=== PATIENT | female | born 1955 | race Caucasian/White ===

== ENCOUNTER → 2017-03-27 | Outpatient (REF) | payer OTHER ==
[2017-03-27 20:24] LABS: ALBUMIN/GLOBULIN RATIO 1.43 (1.00-1.93); ALKALINE PHOSPHATASE 75 U/L (45-117); ALT/SGPT 16 U/L (12-78); ANION GAP 7 MEQ/L (8-16); AST/SGOT 11 U/L (7-37); BILIRUBIN,TOTAL 0.5 MG/DL (0.2-1.0); BLOOD UREA NITROGEN 16 MG/DL (7-18); CARBON DIOXIDE LEVEL 30 MEQ/L (21-32); CHLORIDE LEVEL 108 MEQ/L (98-107); CHOLESTEROL LEVEL 240 MG/DL (<200); CREATININE FOR GFR 0.57 MG/DL (0.55-1.02); GLOMERULAR FILTRATION RATE > 60.0 (>45); GLUCOSE, FASTING 83 MG/DL (80-110); POTASSIUM SERUM 3.9 MEQ/L (3.5-5.1); SODIUM LEVEL 145 MEQ/L (136-145); TOTAL PROTEIN 6.8 GM/DL (6.4-8.2); TRIGLYCERIDES LEVEL 79 MG/DL (<150)
== END ==
LOC: M SFHCCAPE 07:03
PROVIDERS: ATTEND Physician Assistant
DX: E55.9 Vitamin D deficiency, unspecified (principal); Z13.220 Encounter for screening for lipoid disorders; Z13.1 Encounter for screening for diabetes mellitus

== ENCOUNTER → 2019-04-27 | Outpatient (CLI) | payer OTHER ==
[2019-04-27 08:58] LABS: HEMATOCRIT 39.3 % (36.0-47.0); HEMOGLOBIN 12.6 g/dl (12.0-15.5); MEAN CORPUSCULAR HEMOGLOBIN 28.9 pg (27.0-33.0); MEAN CORPUSCULAR HGB CONC 32.1 g/dl (32.0-36.5); MEAN CORPUSCULAR VOLUME 90.1 fl (80.0-96.0); PLATELET COUNT, AUTOMATED 247 10^3/uL (150-450); RED BLOOD COUNT 4.36 10^6/uL (4.00-5.40); WHITE BLOOD COUNT 4.2 10^3/uL (4.0-10.0)
[2019-04-27 09:16] LABS: ERYTHROCYTE SEDIMENTATION RATE 4 mm/hr (0-30)
[2019-04-27 09:25] LABS: ALBUMIN 3.7 GM/DL (3.2-5.2); ALT/SGPT 17 U/L (12-78); BILIRUBIN,TOTAL 0.4 MG/DL (0.2-1.0); BLOOD UREA NITROGEN 19 MG/DL (7-18); CARBON DIOXIDE LEVEL 28 MEQ/L (21-32); CHLORIDE LEVEL 109 MEQ/L (98-107); CREATININE FOR GFR 0.66 MG/DL (0.55-1.30); GLOMERULAR FILTRATION RATE > 60.0 (>45); GLUCOSE, FASTING 88 MG/DL (70-100); POTASSIUM SERUM 3.8 MEQ/L (3.5-5.1); SODIUM LEVEL 144 MEQ/L (136-145); TOTAL PROTEIN 6.4 GM/DL (6.4-8.2)
--- NOTE | 2019-04-27 12:41 | REP ---
Clinical: Osteoarthritis . Comparison: 07/15/2008 . Technique: PA and lateral. Findings: The mediastinum and cardiac silhouette are normal. The lung diaz are clear and without acute consolidation, effusion, or pneumothorax. The skeletal structures are intact and normal. Impression: 1. No acute cardiopulmonary process. Electronically Signed by Nilton Silver MD 04/27/2019 08:47 A
--- NOTE | 2019-04-28 07:01 | ECGEPIP ---
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
== END ==
LOC: M LAB 08:09
PROVIDERS: ATTEND Orthopaedic Surgery
DX: Z01.810 Encounter for preprocedural cardiovascular examination (principal)

== ENCOUNTER → 2019-05-07 | Outpatient (REF) | payer OTHER ==
[~2019-05-07] MED LIST: ADV100INH INH; MOME50SP; PROV108A INH; VITA400T15 PO
[2019-05-07 19:18] LABS: INR 0.93; PROTHROMBIN TIME 12.2 SECONDS (11.8-14.0)
== END ==
LOC: M LABDRWCV 16:16
PROVIDERS: ATTEND Orthopaedic Surgery
DX: Z01.812 Encounter for preprocedural laboratory examination (principal); M17.12 Unilateral primary osteoarthritis, left knee; J45.909 Unspecified asthma, uncomplicated

== ENCOUNTER → 2019-05-13 | Outpatient (CLI) | payer OTHER ==
[~2019-05-13] MED LIST changes: +OXYC1TAB23 PO; +XARE10TA PO
== END ==
LOC: M PT 09:33
PROVIDERS: ATTEND Orthopaedic Surgery
DX: Z01.818 Encounter for other preprocedural examination (principal)

== ENCOUNTER 2019-05-15 10:49 | Inpatient (IN) | payer OTHER ==
--- NOTE | 2019-05-05 16:24 | HPE ---
DATE OF SCHEDULED ADMISSION: 05/15/2018 ATTENDING PHYSICIAN: Dr. Sharyn Bautista CHIEF COMPLAINT: Left knee pain and stiffness. This is a pleasant 63-year-old female patient with progressively worsening left knee pain and stiffness. She has failed to improve with conservative management, including injections in her knees, rest, activity modifications, and nonsteroidal anti-inflammatory drugs (NSAIDs). She has pain with weightbearing activities, walking, climbing stairs, kneeling. It affects her activities of daily living. She has elected for surgery for her continued symptoms. She has consented for a left total knee arthroplasty by Dr. Sharyn Bautista. X-rays of her left knee notable for bone on bone compartment and advanced tricompartmental degenerative changes of her left knee. ALLERGIES: No known drug allergies. CURRENT MEDICATIONS: - Excedrin extra strength - vitamin D3 50 mcg daily - Proventil HFA 108 mcg, two puffs as needed - Nasonex 50 mcg as needed - Advair Diskus 100-50 mcg per dose twice a day - ibuprofen as needed PAST MEDICAL HISTORY: Asthma without any recent exacerbation. FAMILY HISTORY: Noncontributory. SOCIAL HISTORY: Does not smoke. Does not use alcohol. REVIEW OF SYSTEMS: Denies fever, chills. Denies chest pain, shortness of breath, or cough. Denies difficulty breathing. Denies abdominal pain. Denies nausea or vomiting. Has persistent pain in her left knee with weightbearing activities. Denies upper respiratory infection (URI) or urinary tract infection (UTI) symptoms. VITAL SIGNS: Height 61-1/2 inches, weight 140.8, temperature 97.6, blood pressure 122/78, pulse 64, respiratory rate 17. PHYSICAL EXAM: Physical exam today reveals a well nourished, well developed, alert female patient who walks with a slight limping gait, favoring her left side. Exam of the left knee: Skin intact. There is a dry patch of skin on the posterior aspect of her knee without any signs or symptoms of infection. Range of motion 0 to 105 degrees on exam. Stable to varus or valgus stress. Well perfused left lower extremity. Neck is supple without adenopathy or jugular venous distention (JVD). Lungs are clear to auscultation without rales or wheeze. Heart: Regular rate and rhythm. Abdomen: Bowel sounds are present. EKG: Noted for sinus rhythm. Chest x-ray: No acute cardiopulmonary process noted. LABS: White count 4.2, red count 4.36, hemoglobin 12.6, hematocrit 39.3, ESR 4, glucose 88, BUN 19, creatinine 0.66, sodium 144, potassium 3.8. PT and INR not conducted. Will need completed at admission. Reviewed pre and post operative instructions to include but not limited to-need to be NPO after midnight, when to stop NSAIDs and ASA, importance of following primarys and cardiologistsrecommendations for stopping anticoagulants and the primary receommendations for how to take their daily medications Preoperative medical optimization by Dr. Sampson MARINA
[~2019-05-15] VITALS: Ht 160 cm; Wt 66.1 kg
[~2019-05-15 10:49] MED LIST changes: +ACETAMINOPHEN 500 MG TAB PO ONE; +LR 1,000 ML IV ONE; -OXYC1TAB23 PO; -XARE10TA PO; +ceFAZolin SOD 2 GM in IV 1 EA IV ONE
[2019-05-15] MEDS ORDERED: ceFAZolin 1GM INJ (J0690 PER 500MG) As Ordered ONE (12:55)
[2019-05-15] MEDS ORDERED: BUPIVACAINE HCL 0.25% 10 ML VIAL As Ordered ONE (12:56)
[2019-05-15] MEDS ORDERED: EPINEPHrine INJ 1 MG/ML 1ML VIAL As Ordered ONE (12:56)
[2019-05-15] MEDS ORDERED: BUPIVACAINE LIPOSOME/PF 1.3% 20ML VIAL (13.3MG/ML)(EXPAREL)(C9290 PER1MG) As Ordered ONE (12:56)
[2019-05-15] MEDS ORDERED: TRANEXAMIC ACID 100 MG/ML 10ML VIAL As Ordered ONE (12:57)
[2019-05-15] MEDS ORDERED: MIDAZOLAM INJ 2 MG/2 ML VIAL (J2250) As Ordered ONE ×2 (13:50→14:50)
[2019-05-15] MEDS ORDERED: fentaNYL 100 MCG/2 ML INJECTION (J3010) As Ordered ONE ×2 (13:50→14:50)
[2019-05-15] MEDS: MIDAZOLAM INJ 2 MG/2 ML VIAL (J2250) IV PRN ×2 (14:08→14:10)
[2019-05-15] MEDS ORDERED: LIDOCAINE 2% INJ 100 MG/5 ML SDV (FOR ANES.) As Ordered ONE (14:50)
[2019-05-15] MEDS ORDERED: METOCLOPRAMIDE INJ 10MG/2ML VIAL (J2765) As Ordered ONE (14:50)
[2019-05-15] MEDS ORDERED: propofoL 200 MG/20 ML VIAL As Ordered ONE (14:50)
[2019-05-15] MEDS ORDERED: dexameTHASONE 4 MG/ML 1ML VIAL (J1100) As Ordered ONE (14:50)
[2019-05-15] MEDS ORDERED: ONDANSETRON 4MG/2ML VIAL (J2405) As Ordered ONE (14:50)
[2019-05-15] MEDS ORDERED: fentaNYL 100 MCG/2 ML INJECTION (J3010) IV PRN ×2 (15:00→17:45)
[2019-05-15] MEDS ORDERED: ePHEDrine SULFATE 25 MG/5 ML(5MG/ML) SYRINGE As Ordered ONE (15:30)
--- NOTE | 2019-05-15 17:34 | REP ---
Left knee: Two views. History: Status post left knee replacement. Findings: AP and lateral views obtained portably document left knee arthroplasty components in good position. Interarticular and periarticular soft tissue emphysema is seen. Anterior skin arina are noted. Impression: Status post left knee arthroplasty. Electronically Signed by Bayron Hester MD 05/15/2019 05:26 P
[2019-05-15 17:45] VITALS: BP 123/70
[2019-05-15] MEDS ORDERED: HYDROMORPHONE HCL 0.5 MG/ 0.5 ML SYRINGE (J1170 PER 1) IV PRN ×2 (17:45)
[2019-05-15] MEDS ORDERED: MORPHINE 2 MG/ML 1ML VIAL (J2270) IV PRN ×2 (17:45)
[2019-05-15] MEDS ORDERED: LR 1,000 ML IV SCH (17:45)
[2019-05-15] MEDS ORDERED: MORPHINE 4 MG/ML 1ML VIAL/SYRINGE (J2270) IV PRN (17:45)
[2019-05-15] MEDS ORDERED: METOCLOPRAMIDE INJ 10MG/2ML VIAL (J2765) IV PRN (17:45)
[2019-05-15] MEDS ORDERED: ONDANSETRON 4MG/2ML VIAL (J2405) IV PRN ×2 (17:45→18:00)
[2019-05-15] MEDS ORDERED: PERCOCET 5MG/325MG TAB PO PRN ×4 (17:45→18:45)
[2019-05-15] MEDS ORDERED: ACETAMINOPHEN TAB 650MG DOSE (2X325MG) PO PRN (17:45)
[2019-05-15] MEDS ORDERED: PROMETHAZINE INJ 25 MG/ML VIAL (J2550) IV PRN (18:00)
[2019-05-15] MEDS ORDERED: ROPIvacaine 0.5% 30 ML INJECTION (J2795 PER 1MG) ONE (18:04)
[2019-05-15] MEDS ORDERED: dexameTHASONE 10 MG/1 ML VIAL PRES.FREE (J1100) ONE (18:04)
[2019-05-15] MEDS ORDERED: LIDOCAINE 1% MDV 20ML VIAL ONE (18:04)
[2019-05-15] MEDS: LR 1,000 ML IV SCH ×2 (18:07→18:09)
[2019-05-15 18:15] VITALS: BP 124/70
[2019-05-15 19:00] VITALS: BP 136/76
[2019-05-15 20:00] VITALS: BP 132/75
[2019-05-15 21:00] VITALS: BP 128/74
[2019-05-15 22:00] VITALS: BP 130/71
--- NOTE | 2019-05-15 22:03 | RO ---
DATE OF PROCEDURE: 05/15/2019 PREPROCEDURE DIAGNOSIS: Left knee severe varus tricompartmental degenerative arthritis. POSTPROCEDURE DIAGNOSIS: Left knee severe varus tricompartmental degenerative arthritis. OPERATIVE PROCEDURE: Left total knee arthroplasty using a cruciate sacrificing size 5 femoral component with a size 5 tibial tray and a 12 mm rotating platform, posterior stabilized polyethylene insert and a 35 mm polyethylene button. Prosthesis made by [employer]. It was an Attune knee. SURGEON: Sharyn Bautista MD HI TEACHER: Rogelio Perdomo ANESTHESIA: Spinal with left femoral nerve block. COMPLICATIONS: None. SPECIMENS: Joint surface. ESTIMATED BLOOD LOSS: 20 mL. DESCRIPTION OF PROCEDURE: Antibiotics were given intravenously preoperatively and a successful left femoral nerve block and spinal anesthetic was induced. A tourniquet was placed in the left upper thigh and not inflated. The left lower extremity was carefully prepped and draped in the usual sterile fashion. Leg was elevated and after an appropriate time out, the tourniquet was inflated and then longitudinal incision was made for a medial parapatellar approach to the knee. Bovie cautery was used to coagulate crossing vessels. Subperiosteal dissection around the proximal medial lateral tibial plateau was performed and I took great attention and detail to do a complete medial and posterior medial release. I everted the patella, debrided the anterior cruciate ligament (ACL), drilled down the center of the femoral canal followed by the intramedullary bang, the distal femoral cutting jig set at 5 degrees valgus cut at 9 mm resection level for a left knee distal femoral cut performed. AP sizing jig measured for a size 5 block. 3 degrees of external rotation dialed in. Four-in-one block applied and the anterior-posterior chamfer cuts performed. At this point, we planned to do a posterior cruciate sacrificing knee given its severe deformity. She had quite a bit of bowing and dishing along the medial tibial condyle, indicative that we were going to have to take quite a big tibial cut and going to have to excise the posterior cruciate ligament (PCL), thus a posterior stabilized knee construct was decided upon. Possibly even a TC3 with a medial wedge. I debrided the ACL and PCL from the notch and then placed the jig for the box osteotomy. It was pinned into position, then the box osteotomy performed. We then exposed the proximal tibia and used the extramedullary alignment jig to estimate being parallel to the mechanical axis. I used the stylus to reference off the medial tibial condyle at 2 mm resection level on the good side, that is the lateral side, it was 10 mm, thus this felt to be the appropriate resection level. The block was pinned into position and the secondary check with extramedullary bang confirmed that we appeared to be parallel to the mechanical axis and thus the proximal tibial osteotomy was performed, and we just scribed off the medial tibial condyle. We did not need the wedge. I did focus a bit more on the posterior and medial release, removed the osteophytes and some of the semimembranosus insertion posterior medial capsule to allow proper release as much as possible. The laminar hospice community liaison was placed laterally and we performed a completion medial meniscectomy, debriding posterior medial osteophytes and then placed a laminar hospice community liaison medially and performed a completion lateral meniscectomy with debridement of posterolateral osteophytes. The spacer block was then tried and she was a bit snug medially even with a 7 mm insert in flexion, but not in extension, thus I felt that more release was needed. I focused on the medial release and then eventually a 10 mm fit much better with better stability and extension. She was still a bit snug in flexion, thus we felt a little bit more release should be obtained and I maxed out our ability to release any soft tissues thus I did do a small pie crust with an 11 blade in the medial collateral ligament and this allowed a 12 mm spacer to fit nicely with good stability in flexion and extension to varus valgus stress testing and she had normal extension. Thus I felt this was the appropriate size construct to use. I exposed the proximal tibia, sized for a size #5 tibial tray which was pinned into position, followed by the reamer and broach and then we placed the trial femur and then the trial polyethylene, brought to knee into extension, everted the patella, performed a patellar osteotomy, sized for a 35 button. Lug hole was drilled, trial placed. Patellofemoral tracking was anatomic. We drilled the lug holes for the femur, removed all the trial components and placed Exparel in the subperiosteal tissues around the distal femur and the proximal tibia and then Mr. Rogelio Perdomo mixed the cement on the back table as I prepared the bony surfaces for the cementing with a copious amount of pulsatile lavage irrigant solution. Mr. Perdomo was also critical to the success of this difficult operation by helping with appropriate soft tissue retraction, helped to manipulate the knee as needed so I could perform the operation smoothly and efficiently and safely, mixed the cement, closed the wound, help prepare the patient amongst many other tasks. Once the bony surfaces were thoroughly dried, we cemented the tibial tray, removed excess cement, cemented the femoral component, removed excess cement, then placed the polyethylene and brought the knee into extension, then cemented the patellar button, held it with a clamp after removing excess cement and held the knee in full extension until the cement had hardened. Copiously irrigated as we awaited this. We then placed Tranexamic acid in the depths of the wound, closed the apex of the arthrotomy with #1 PDS sutures and then the medial peripatellar area was closed with #1 PDS sutures, then the capsule was closed with a running #1 double armed Stratafix. Then we released the tourniquet. We irrigated between layers again, closed the deep subdermal tissues with interrupted #2-0 PDS sutures, skin was closed with arina, covered by an Optifoam and dry sterile bulky dressing. She was then transferred to the recovery room in stable condition. There were no intraoperative complications.
[2019-05-15] MEDS: ceFAZolin SOD 2 GM in IV 1 EA IV SCH (23:31)
[2019-05-16] MEDS: PERCOCET 5MG/325MG TAB PO PRN ×3 (00:21→10:20)
[2019-05-16 02:00] VITALS: BP 104/60
[2019-05-16] MEDS: ceFAZolin SOD 2 GM in IV 1 EA IV SCH ×3 (05:52→10:52)
[2019-05-16 06:00] VITALS: BP 110/63
[2019-05-16 06:39] LABS: HEMATOCRIT 35.2 % (36.0-47.0); HEMOGLOBIN 10.9 g/dl (12.0-15.5); MEAN CORPUSCULAR HEMOGLOBIN 28.2 pg (27.0-33.0); MEAN CORPUSCULAR VOLUME 91.2 fl (80.0-96.0); PLATELET COUNT, AUTOMATED 212 10^3/uL (150-450); RED BLOOD COUNT 3.86 10^6/uL (4.00-5.40); WHITE BLOOD COUNT 8.4 10^3/uL (4.0-10.0)
[2019-05-16 07:17] LABS: ALBUMIN 3.5 GM/DL (3.2-5.2); ALT/SGPT 16 U/L (12-78); BILIRUBIN,TOTAL 0.8 MG/DL (0.2-1.0); BLOOD UREA NITROGEN 13 MG/DL (7-18); CARBON DIOXIDE LEVEL 25 MEQ/L (21-32); CHLORIDE LEVEL 105 MEQ/L (98-107); CREATININE FOR GFR 0.65 MG/DL (0.55-1.30); GLOMERULAR FILTRATION RATE > 60.0 (>45); GLUCOSE, FASTING 120 MG/DL (70-100); POTASSIUM SERUM 3.8 MEQ/L (3.5-5.1); SODIUM LEVEL 138 MEQ/L (136-145); TOTAL PROTEIN 6.3 GM/DL (6.4-8.2)
[2019-05-16] MEDS ORDERED: MOM 30ML SUSPENSION UDC PO SCH (09:00)
[2019-05-16] MEDS ORDERED: MIRALAX *UNIT DOSE* 17GM PACKET PO SCH (09:00)
[2019-05-16] MEDS ORDERED: XARE10TA PO (12:50)
[2019-05-16] MEDS ORDERED: OXYC1TAB23 PO (12:50)
[2019-05-16] MEDS ORDERED: RIVAROXABAN 10 MG TAB (XARELTO) PO SCH (18:00)
--- NOTE | 2019-05-18 12:36 | DSES ---
DATE OF ADMISSION: 05/15/2019 DATE OF DISCHARGE: 05/16/2019 ATTENDING PHYSICIAN: Dr Bautista ADMISSION DIAGNOSIS: Left knee degenerative arthritis. OTHER DIAGNOSES: Asthma. DISCHARGE DIAGNOSIS: Left knee degenerative arthritis status post left total knee arthroplasty. HISTORY: The patient is a 63-year-old female that had progressively worsening left knee pain and stiffness. She failed to improve with conservative measures. She continued to have symptoms with weightbearing activities and activities of daily living. She consented for an elective left total knee arthroplasty with Dr. Bautista for her continued symptoms. OPERATION PERFORMED: Left total knee arthroplasty. HOSPITAL COURSE: The patient underwent a left total knee arthroplasty under spinal anesthesia with left femoral nerve block. Surgery was uneventful, and her hospital course was without complication. She was up with physical therapy per their protocol, weightbearing as tolerated on the left lower extremity. The patient was discharged on oral pain medications and will resume her preoperative medications and diet. She will take her Xarelto and use her thromboembolic deterrent stockings as directed to prevent deep venous thrombosis. The patient will follow up in our office in 12-14 days for wound check and staple removal. She is encouraged to contact our office sooner if there is any increase in pain, redness, drainage, numbness or tingling in the extremity, fever greater than 101 degrees or any other concerns. Please see medical record for additional details. LAINA
== END 2019-05-16 12:59 | disposition home or self-care (01) | DRG 470 ==
LOC: M OR 10:54 → M MS5PR 17:36
PROVIDERS: ADMIT Orthopaedic Surgery; ATTEND Orthopaedic Surgery
PROC: 0SRD0J9 Replacement of Left Knee Joint with Synthetic Substitute, Cemented, Open Approach (ICD-10-PCS; principal; 2019-05-15 15:00)
DX: M17.12 Unilateral primary osteoarthritis, left knee (principal); Z79.899 Other long term (current) drug therapy; Z79.01 Long term (current) use of anticoagulants; Z79.51 Long term (current) use of inhaled steroids; J45.909 Unspecified asthma, uncomplicated

== ENCOUNTER → 2020-07-15 | Outpatient (REF) | payer OTHER ==
[~2020-07-15] MED LIST changes: -ACETAMINOPHEN 500 MG TAB PO ONE; -LR 1,000 ML IV ONE; +OXYC1TAB23 PO; +XARE10TA PO; -ceFAZolin SOD 2 GM in IV 1 EA IV ONE
[2020-07-15 17:17] LABS: HEMATOCRIT 38.5 % (36.0-47.0); HEMOGLOBIN 12.5 g/dl (12.0-15.5); MEAN CORPUSCULAR HEMOGLOBIN 28.9 pg (27.0-33.0); MEAN CORPUSCULAR HGB CONC 32.5 g/dl (32.0-36.5); MEAN CORPUSCULAR VOLUME 89.1 fl (80.0-96.0); PLATELET COUNT, AUTOMATED 265 10^3/uL (150-450); RED BLOOD COUNT 4.32 10^6/uL (4.00-5.40); WHITE BLOOD COUNT 5.8 10^3/uL (4.0-10.0)
[2020-07-15 17:20] LABS: AMORPHOUS SEDIMENT SMALL (NEGATIVE); APPEARANCE, URINE TURBID (CLEAR); BACTERIA, URINE AUTO 2+ (NEGATIVE); BILIRUBIN, URINE AUTO NEGATIVE (NEGATIVE); BLOOD, URINE BLOOD 3+ (NEGATIVE); CALCIUM OXALATE CRYSTALS SMALL; COLOR, URINE YELLOW (YELLOW); GLUCOSE, URINE (UA) AUTO NEGATIVE (NEGATIVE); KETONE, URINE AUTO NEGATIVE (NEGATIVE); LEUKOCYTE ESTERASE, URINE AUTO 1+ (NEGATIVE); MUCUS, URINE SMALL (NEGATIVE); NITRITE, URINE AUTO POSITIVE (NEGATIVE); PROTEIN, URINE AUTO NEGATIVE (NEGATIVE); RBC, URINE AUTO 0 /HPF (0-3); SPECIFIC GRAVITY URINE AUTO 1.021 (1.002-1.035); SQUAMOUS EPITHELIAL CELL UR AU 0 /HPF (0-6); UROBILINOGEN, URINE AUTO 0.2 mg/dL (0.0-2.0); WBC, URINE AUTO 14 /HPF (0-3)
[2020-07-15 17:52] LABS: ALT/SGPT 21 U/L (12-78); BILIRUBIN,TOTAL 0.5 MG/DL (0.2-1.0); BLOOD UREA NITROGEN 19 MG/DL (7-18); CARBON DIOXIDE LEVEL 29 MEQ/L (21-32); CHLORIDE LEVEL 108 MEQ/L (98-107); CHOLESTEROL LEVEL 234 MG/DL (<200); CREATININE FOR GFR 0.62 MG/DL (0.55-1.30); GLOMERULAR FILTRATION RATE > 60.0 (>45); GLUCOSE, FASTING 96 MG/DL (70-100); HDL CHOLESTEROL 90 MG/DL (>40); NON-HDL-C 144 MG/DL; POTASSIUM SERUM 3.9 MEQ/L (3.5-5.1); SODIUM LEVEL 142 MEQ/L (136-145); TRIGLYCERIDES LEVEL 51 MG/DL (<150)
[2020-07-15 17:53] LABS: FREE T4 1.05 NG/DL (0.76-1.46); LDL CHOLESTEROL 134 MG/DL (<100); TOTAL PROTEIN 6.6 GM/DL (6.4-8.2)
== END ==
LOC: M SFHCADAM 11:42
PROVIDERS: ATTEND Physician Assistant
DX: J45.30 Mild persistent asthma, uncomplicated (principal); J30.89 Other allergic rhinitis; D64.9 Anemia, unspecified; E78.5 Hyperlipidemia, unspecified

== ENCOUNTER → 2020-09-28 | Outpatient (CLI) | payer OTHER | LOC: M LABSMTC 11:12 | PROVIDERS: ATTEND Anesthesiology | DX: Z01.818 Encounter for other preprocedural examination (principal); Z20.822 Contact with and (suspected) exposure to COVID-19 ==

== ENCOUNTER 2020-10-03 09:55 | Day surgery (SDC) | payer OTHER ==
[~2020-10-03] VITALS: Ht 160 cm; Wt 66.7 kg
[~2020-10-03 09:55] MED LIST changes: +NS 1,000 ML IV ONE
--- NOTE | 2020-10-03 11:44 | ROOR ---
Patient Name: Ximena Mckeon Procedure Date: 10/03/2020 11:22 AM Date of : 1955 Age: 65 Room: [facility] Gender: Female Note Status: Finalized Procedure: Total Colonoscopy to Cecum Indications: Screening for colorectal malignant neoplasm, Last colonoscopy: 2010 Providers: Feliciano Abad MD Referring MD: JP Moses Requesting Provider: Medicines: Monitored Anesthesia Care Complications: No immediate complications. Procedure: Pre-Anesthesia Assessment: - The heart rate, respiratory rate, oxygen saturations, blood pressure, adequacy of pulmonary ventilation, and response to care were monitored throughout the procedure. The Colonoscope was introduced through the anus and advanced to the cecum, identified by appendiceal orifice and ileocecal valve. The colonoscopy was performed without difficulty. The patient tolerated the procedure well. The quality of the bowel preparation was excellent. Findings: The perianal and digital rectal examinations were normal. Non-bleeding internal hemorrhoids were found during retroflexion. The hemorrhoids were small and Grade I (internal hemorrhoids that do not prolapse). No other significant abnormalities were identified in a careful examination of the remainder of the colon. The exam was otherwise without abnormality on direct and retroflexion views. Impression: - Non-bleeding internal hemorrhoids. - The examination was otherwise normal on direct and retroflexion views. - No specimens collected. - The exam was otherwise normal to the cecum. Recommendation: - Patient has a contact number available for emergencies. The signs and symptoms of potential delayed complications were discussed with the patient. Return to normal activities tomorrow. Written discharge instructions were provided to the patient. - High fiber diet. - Discharge patient to home. - Continue present medications. - Repeat colonoscopy in 10 years for screening purposes. - Return to referring physician. - The findings and recommendations were discussed with the patient's family. Procedure Code(s): --- Professional --- 95202, Colonoscopy, flexible; diagnostic, including collection of specimen(s) by brushing or washing, when performed (separate procedure) Diagnosis Code(s): --- Professional --- Z12.11, Encounter for screening for malignant neoplasm of colon K64.0, First degree hemorrhoids CPT copyright 2019 [employer]. All rights reserved. The codes documented in this report are preliminary and upon pecan mallow dipper review may be revised to meet current compliance requirements. Feliciano Abad MD Feliciano Abad MD 10/03/2020 11:44:10 AM Electronically signed by Feliciano Abad MD Number of Addenda: 0 Note Initiated On: 10/03/2020 11:22 AM Estimated Blood Loss: Estimated blood loss: none.
[2020-10-03 12:01] VITALS: BP 168/82
== END 2020-10-03 12:03 | disposition home or self-care (01) ==
LOC: M OPP 09:55
PROVIDERS: ATTEND Internal Medicine Gastroenterology
DX: Z12.11 Encounter for screening for malignant neoplasm of colon (principal); K64.0 First degree hemorrhoids; M19.90 Unspecified osteoarthritis, unspecified site; J45.909 Unspecified asthma, uncomplicated; Z96.652 Presence of left artificial knee joint; Z91.038 Other insect allergy status; Z79.899 Other long term (current) drug therapy; Z91.09 Other allergy status, other than to drugs and biological substances

== ENCOUNTER → 2021-04-17 | Outpatient (REF) | payer OTHER ==
[~2021-04-17] MED LIST changes: -MOME50SP; +NASO50SP3; -NS 1,000 ML IV ONE
== END ==
LOC: M SFHCPLAZ 16:56
PROVIDERS: ATTEND Physician Assistant
DX: R05.1 Acute cough (principal)

== ENCOUNTER → 2021-04-17 | Outpatient (CLI) | payer MEDICARE, OTHER, SELFPAY | LOC: M PLAIMG 14:33 | PROVIDERS: ATTEND Physician Assistant | DX: R07.89 Other chest pain (principal); R05.1 Acute cough; Z20.822 Contact with and (suspected) exposure to COVID-19 ==

== ENCOUNTER → 2021-06-13 | Outpatient (CLI) | payer OTHER | LOC: M WHC 13:45 | PROVIDERS: ATTEND Physician Assistant | DX: R92.2 Inconclusive mammogram (principal); N63.41 Unspecified lump in right breast, subareolar ==

== ENCOUNTER → 2021-06-20 | Outpatient (CLI) | payer OTHER | LOC: M WHC 08:02 | PROVIDERS: ATTEND Physician Assistant | DX: R92.2 Inconclusive mammogram (principal) | CPT/HCPCS: 76642; 77066; G0279 ==

== ENCOUNTER → 2021-07-20 | Outpatient (REF) | payer OTHER ==
[2021-07-20 16:09] LABS: APPEARANCE, URINE CLEAR (CLEAR); BACTERIA, URINE AUTO NEGATIVE (NEGATIVE); BILIRUBIN, URINE AUTO NEGATIVE (NEGATIVE); BLOOD, URINE BLOOD 1+ (NEGATIVE); COLOR, URINE YELLOW (YELLOW); GLUCOSE, URINE (UA) AUTO NEGATIVE (NEGATIVE); KETONE, URINE AUTO NEGATIVE (NEGATIVE); LEUKOCYTE ESTERASE, URINE AUTO NEGATIVE (NEGATIVE); MUCUS, URINE SMALL (NEGATIVE); NITRITE, URINE AUTO NEGATIVE (NEGATIVE); PROTEIN, URINE AUTO NEGATIVE (NEGATIVE); RBC, URINE AUTO 3 /HPF (0-3); SPECIFIC GRAVITY URINE AUTO 1.017 (1.002-1.035); SQUAMOUS EPITHELIAL CELL UR AU 0 /HPF (0-6); UROBILINOGEN, URINE AUTO 0.2 mg/dL (0.0-2.0); WBC, URINE AUTO 2 /HPF (0-3)
[2021-07-20 16:12] LABS: BASO # 0.1 10^3/uL (0.0-0.2); BASO % 1.2 % (0.0-1.0); EOS # 0.1 10^3/uL (0.0-0.5); EOS % 2.9 % (0.0-3.0); HEMATOCRIT 40.6 % (36.0-47.0); HEMOGLOBIN 13.1 g/dl (12.0-15.5); LYMPH # 1.6 10^3/uL (1.5-5.0); LYMPH % 33.4 % (24.0-44.0); MEAN CORPUSCULAR HEMOGLOBIN 28.7 pg (27.0-33.0); MEAN CORPUSCULAR HGB CONC 32.3 g/dl (32.0-36.5); MONO # 0.4 10^3/uL (0.0-0.8); MONO % 8.4 % (2.0-8.0); NEUTROPHILS # 2.6 10^3/uL (1.5-8.5); NEUTROPHILS % 53.9 % (36.0-66.0); PLATELET COUNT, AUTOMATED 277 10^3/uL (150-450); RED BLOOD COUNT 4.56 10^6/uL (4.00-5.40); WHITE BLOOD COUNT 4.9 10^3/uL (4.0-10.0)
[2021-07-20 16:36] LABS: ALT/SGPT 25 U/L (12-78); BILIRUBIN,TOTAL 0.5 MG/DL (0.2-1.0); BLOOD UREA NITROGEN 16 MG/DL (7-18); CALCIUM LEVEL 9.2 MG/DL (8.8-10.2); CARBON DIOXIDE LEVEL 29 MEQ/L (21-32); CHLORIDE LEVEL 110 MEQ/L (98-107); CHOLESTEROL LEVEL 225 MG/DL (<200); CHOLESTEROL RISK RATIO 3.461 (<5); CREATININE FOR GFR 0.62 MG/DL (0.55-1.30); FERRITIN 85 NG/ML (8-252); FREE T4 0.95 NG/DL (0.76-1.46); GLOMERULAR FILTRATION RATE > 60.0 (>45); GLUCOSE, FASTING 88 MG/DL (70-100); HDL CHOLESTEROL 65 MG/DL (>40); IRON (FE) 77 UG/DL (50-170); LDL CHOLESTEROL 137 MG/DL (<100); NON-HDL-C 160 MG/DL; PERCENT SATURATION 24.3 % (13.2-45.0); POTASSIUM SERUM 4.1 MEQ/L (3.5-5.1); SODIUM LEVEL 143 MEQ/L (136-145); TOTAL IRON BINDING CAPACITY 317 UG/DL (250-450); TOTAL PROTEIN 6.6 GM/DL (6.4-8.2); TRIGLYCERIDES LEVEL 116 MG/DL (<150)
[2021-07-20 16:40] LABS: TOTAL 25(OH) VITAMIN D 33.2 NG/ML (30.0-100.0)
[2021-07-20 16:41] LABS: FOLATE 18.5 NG/ML; VITAMIN B12 LEVEL 802 PG/ML
== END ==
LOC: M SFHCCAPE 08:21
PROVIDERS: ATTEND Physician Assistant
DX: R53.82 Chronic fatigue, unspecified (principal); R41.0 Disorientation, unspecified; E55.9 Vitamin D deficiency, unspecified; J45.30 Mild persistent asthma, uncomplicated

== ENCOUNTER → 2021-07-25 | Outpatient (CLI) | payer OTHER ==
[~2021-07-25] MED LIST changes: +**SFHN** LIDOCAINE 1% MDV 20ML VIAL ONE; +**SFHN** SODIUM BICARBONATE 8.4% 50MEQ 50ML VIAL ONE; +EXCETAB33 PO; +IBUP-1114 PO
[2021-07-25 15:08] VITALS: BP 124/70
== END ==
LOC: M WHCPRO 13:58
PROVIDERS: ATTEND Surgery
DX: D24.1 Benign neoplasm of right breast (principal)

== ENCOUNTER → 2022-01-10 | Outpatient (REF) | payer MEDICARE, OTHER ==
[~2022-01-10] MED LIST changes: -**SFHN** LIDOCAINE 1% MDV 20ML VIAL ONE; -**SFHN** SODIUM BICARBONATE 8.4% 50MEQ 50ML VIAL ONE; +ALBU6.7H6 INH; +EXCETAB32 PO; -EXCETAB33 PO; -PROV108A INH
== END ==
LOC: M SFHCADAM 13:03
PROVIDERS: ATTEND Physician Assistant
DX: R21 Rash and other nonspecific skin eruption (principal)

== ENCOUNTER → 2022-03-12 | Outpatient (CLI) | payer MEDICARE, OTHER | LOC: M WHC 13:19 | PROVIDERS: ATTEND Nurse Practitioner Women's Health | DX: R92.8 Other abnormal and inconclusive findings on diagnostic imaging of breast (principal) | CPT/HCPCS: 77065; G0279 ==

== ENCOUNTER → 2022-07-18 | Outpatient (CLI) | payer OTHER, MEDICARE | LOC: M WHC 11:41 | PROVIDERS: ATTEND Physician Assistant | DX: Z53.9 Procedure and treatment not carried out, unspecified reason (principal) ==

== ENCOUNTER → 2023-03-05 | Outpatient (REF) | payer OTHER, MEDICARE | LOC: M SFHCCAPE 17:07 | PROVIDERS: ATTEND Physician Assistant Medical | DX: J02.9 Acute pharyngitis, unspecified (principal) ==

== ENCOUNTER → 2023-07-23 | Outpatient (CLI) | payer MEDICARE, OTHER ==
[2023-07-23 16:15] LABS: BASO # 0.1 10^3/uL (0.0-0.2); BASO % 1.3 % (0.0-1.0); EOS # 0.2 10^3/uL (0.0-0.5); EOS % 2.4 % (0.0-3.0); HEMATOCRIT 39.8 % (36.0-47.0); HEMOGLOBIN 12.7 g/dl (12.0-15.5); LYMPH # 1.7 10^3/uL (1.5-5.0); LYMPH % 26.7 % (24.0-44.0); MEAN CORPUSCULAR HGB CONC 31.9 g/dl (32.0-36.5); MEAN CORPUSCULAR VOLUME 90.9 fl (80.0-96.0); MONO # 0.7 10^3/uL (0.0-0.8); MONO % 11.1 % (2.0-8.0); NEUTROPHILS # 3.7 10^3/uL (1.5-8.5); NEUTROPHILS % 58.3 % (36.0-66.0); PLATELET COUNT, AUTOMATED 272 10^3/uL (150-450); RED BLOOD COUNT 4.38 10^6/uL (4.00-5.40); WHITE BLOOD COUNT 6.3 10^3/uL (4.0-10.0)
[2023-07-23 16:47] LABS: ALBUMIN 3.9 G/DL (3.2-5.2); ALKALINE PHOSPHATASE 87 U/L (46-116); ALT/SGPT 18 U/L (7.0-40); AST/SGOT 20 U/L (<34); BILIRUBIN,TOTAL 0.7 MG/DL (0.3-1.2); BLOOD UREA NITROGEN 18 MG/DL (9-23); CARBON DIOXIDE LEVEL 31 MMOL/L (20-31); CHLORIDE LEVEL 106 MMOL/L (98-107); CHOLESTEROL LEVEL 229 MG/DL (<200); CHOLESTEROL RISK RATIO 2.62 (<5); CREATININE FOR GFR 0.67 MG/DL (0.55-1.30); GLOMERULAR FILTRATION RATE > 60.0 (>45); GLUCOSE, FASTING 87 MG/DL (74-106); HDL CHOLESTEROL 87.4 MG/DL (>40); LDL CHOLESTEROL 127.8 MG/DL (<100); NON-HDL-C 141.6 MG/DL; POTASSIUM SERUM 4.2 MMOL/L (3.5-5.1); SODIUM LEVEL 141 MMOL/L (136-145); TOTAL PROTEIN 6.5 G/DL (5.7-8.2); TRIGLYCERIDES LEVEL 69 MG/DL (<150)
[2023-07-23 16:51] LABS: TOTAL 25(OH) VITAMIN D 28.3 NG/ML (20.0-100.0)
[2023-07-24 16:08] LABS: CALCIUM LEVEL 9.6 MG/DL (8.3-10.6)
== END ==
LOC: M WHC 12:01
PROVIDERS: ATTEND Physician Assistant
DX: J45.30 Mild persistent asthma, uncomplicated (principal); E55.9 Vitamin D deficiency, unspecified; R53.83 Other fatigue; Z13.220 Encounter for screening for lipoid disorders; Z12.31 Encounter for screening mammogram for malignant neoplasm of breast; Z13.820 Encounter for screening for osteoporosis; Z79.899 Other long term (current) drug therapy

== ENCOUNTER → 2024-03-03 | Outpatient (REF) | payer MEDICARE, OTHER | LOC: M SFHCCAPE 11:22 | PROVIDERS: ATTEND Physician Assistant Medical | DX: R35.0 Frequency of micturition (principal) ==

== ENCOUNTER → 2024-05-06 | Outpatient (REF) | payer MEDICARE, OTHER ==
[~2024-05-06] MED LIST changes: -ADV100INH INH; +ADVA1AER8 INH
[2024-05-06 17:41] LABS: AMORPHOUS SEDIMENT SMALL (NEGATIVE); APPEARANCE, URINE TURBID (CLEAR); BACTERIA, URINE AUTO 1+ (NEGATIVE); BILIRUBIN, URINE AUTO NEGATIVE (NEGATIVE); BLOOD, URINE BLOOD 2+ (NEGATIVE); COLOR, URINE AMBER (YELLOW); GLUCOSE, URINE (UA) AUTO NEGATIVE (NEGATIVE); KETONE, URINE AUTO NEGATIVE (NEGATIVE); LEUKOCYTE ESTERASE, URINE AUTO TRACE (NEGATIVE); MUCUS, URINE SMALL (NEGATIVE); NITRITE, URINE AUTO NEGATIVE (NEGATIVE); PROTEIN, URINE AUTO NEGATIVE (NEGATIVE); RBC, URINE AUTO 14 /HPF (0-3); SQUAMOUS EPITHELIAL CELL UR AU 1 /HPF (0-6); UROBILINOGEN, URINE AUTO 0.2 mg/dL (0.0-2.0); WBC, URINE AUTO 6 /HPF (0-3)
== END ==
LOC: M SFHCCAPE 10:25
PROVIDERS: ATTEND Physician Assistant Medical
DX: R82.90 Unspecified abnormal findings in urine (principal)

== ENCOUNTER → 2024-05-21 | Outpatient (CLI) | payer MEDICARE, OTHER | LOC: M WHC 13:35 | PROVIDERS: ATTEND Nurse Practitioner Family | DX: Z12.31 Encounter for screening mammogram for malignant neoplasm of breast (principal); R92.333 Mammographic heterogeneous density, bilateral breasts ==

== ENCOUNTER → 2024-05-21 | Outpatient (CLI) | payer MEDICARE, OTHER ==
[2024-05-21 16:31] LABS: Trichomonas vaginalis (AMP) NOT DETECTED (NEGATIVE)
[2024-05-21 16:55] LABS: GC DNA AMPLIFICATION NEGATIVE (NEGATIVE)
[2024-05-21 18:56] LABS: HEPATITIS B SURFACE ANTIBODY NEGATIVE (POSITIVE)
[2024-05-21 19:07] LABS: HEPATITIS B SURFACE ANTIGEN NEGATIVE (NEGATIVE)
[2024-05-21 19:20] LABS: HIV 1&2 SCREEN NEGATIVE (NEGATIVE)
[2024-05-21 19:29] LABS: HEPATITIS C VIRUS ABY INDEX < 0.02 INDEX (<0.8)
[2024-05-21 21:17] LABS: Trichomonas vaginalis (AMP) NOT DETECTED (NEGATIVE)
[2024-05-21 21:41] LABS: GC DNA AMPLIFICATION NEGATIVE (NEGATIVE)
[2024-05-23 19:51] LABS: HPV APTIMA Not Detected (Not Detected)
== END ==
LOC: M PLALAB 14:11
PROVIDERS: ATTEND Nurse Practitioner Family
DX: Z12.4 Encounter for screening for malignant neoplasm of cervix (principal); N88.8 Other specified noninflammatory disorders of cervix uteri; Z11.3 Encounter for screening for infections with a predominantly sexual mode of transmission; Z72.89 Other problems related to lifestyle; Z11.59 Encounter for screening for other viral diseases
CPT/HCPCS: 36415; 86706; 86780; 86803; 87340; 87389; 87624; 87661; 87810; 87850; G0123

== ENCOUNTER → 2024-05-25 | Outpatient (REF) | payer MEDICARE, OTHER ==
[2024-05-25 17:14] LABS: APPEARANCE, URINE CLEAR (CLEAR); BACTERIA, URINE AUTO NEGATIVE (NEGATIVE); BILIRUBIN, URINE AUTO NEGATIVE (NEGATIVE); BLOOD, URINE BLOOD 2+ (NEGATIVE); COLOR, URINE YELLOW (YELLOW); GLUCOSE, URINE (UA) AUTO NEGATIVE (NEGATIVE); KETONE, URINE AUTO NEGATIVE (NEGATIVE); LEUKOCYTE ESTERASE, URINE AUTO NEGATIVE (NEGATIVE); MUCUS, URINE SMALL (NEGATIVE); NITRITE, URINE AUTO NEGATIVE (NEGATIVE); PROTEIN, URINE AUTO NEGATIVE (NEGATIVE); RBC, URINE AUTO 15 /HPF (0-3); SPECIFIC GRAVITY URINE AUTO 1.018 (1.002-1.035); SQUAMOUS EPITHELIAL CELL UR AU 0 /HPF (0-6); UROBILINOGEN, URINE AUTO 0.2 mg/dL (0.0-2.0); WBC, URINE AUTO 2 /HPF (0-3)
== END ==
LOC: M SFHCCAPE 10:06
PROVIDERS: ATTEND Physician Assistant Medical
DX: R31.9 Hematuria, unspecified (principal)

== ENCOUNTER → 2024-06-16 | Outpatient (REF) | payer MEDICARE, OTHER ==
[2024-06-16 13:28] LABS: APPEARANCE, URINE CLEAR (CLEAR); BACTERIA, URINE AUTO NEGATIVE (NEGATIVE); BILIRUBIN, URINE AUTO NEGATIVE (NEGATIVE); BLOOD, URINE BLOOD 2+ (NEGATIVE); COLOR, URINE YELLOW (YELLOW); GLUCOSE, URINE (UA) AUTO NEGATIVE (NEGATIVE); KETONE, URINE AUTO NEGATIVE (NEGATIVE); LEUKOCYTE ESTERASE, URINE AUTO NEGATIVE (NEGATIVE); MUCUS, URINE SMALL (NEGATIVE); NITRITE, URINE AUTO NEGATIVE (NEGATIVE); PROTEIN, URINE AUTO NEGATIVE (NEGATIVE); RBC, URINE AUTO 4 /HPF (0-3); SPECIFIC GRAVITY URINE AUTO 1.019 (1.002-1.035); SQUAMOUS EPITHELIAL CELL UR AU 0 /HPF (0-6); UROBILINOGEN, URINE AUTO 0.2 mg/dL (0.0-2.0); WBC, URINE AUTO 0 /HPF (0-3)
[2024-06-16 14:23] LABS: BASO # 0.1 10^3/uL (0.0-0.2); BASO % 1.3 % (0.0-1.0); EOS # 0.1 10^3/uL (0.0-0.5); EOS % 2.6 % (0.0-3.0); HEMATOCRIT 39.3 % (36.0-47.0); HEMOGLOBIN 12.6 g/dl (12.0-15.5); LYMPH # 1.4 10^3/uL (1.5-5.0); LYMPH % 24.8 % (24.0-44.0); MEAN CORPUSCULAR HEMOGLOBIN 29.6 pg (27.0-33.0); MEAN CORPUSCULAR HGB CONC 32.1 g/dl (32.0-36.5); MEAN CORPUSCULAR VOLUME 92.5 fl (80.0-96.0); MONO # 0.4 10^3/uL (0.0-0.8); MONO % 7.2 % (2.0-8.0); NEUTROPHILS # 3.5 10^3/uL (1.5-8.5); NEUTROPHILS % 63.7 % (36.0-66.0); PLATELET COUNT, AUTOMATED 267 10^3/uL (150-450); RED BLOOD COUNT 4.25 10^6/uL (4.00-5.40); WHITE BLOOD COUNT 5.5 10^3/uL (4.0-10.0)
[2024-06-16 14:27] LABS: ALBUMIN 3.8 G/DL (3.2-5.2); ALKALINE PHOSPHATASE 105 U/L (35-104); ALT/SGPT 13 U/L (7.0-40); AST/SGOT 11 U/L (<34); BILIRUBIN,TOTAL 0.5 MG/DL (0.3-1.2); BLOOD UREA NITROGEN 20 MG/DL (9-23); CALCIUM LEVEL 9.8 MG/DL (8.3-10.6); CARBON DIOXIDE LEVEL 30 MMOL/L (20-31); CHLORIDE LEVEL 109 MMOL/L (98-107); CREATININE FOR GFR 0.69 MG/DL (0.55-1.30); GLOMERULAR FILTRATION RATE > 60.0 (>45); GLUCOSE, FASTING 92 MG/DL (74-106); POTASSIUM SERUM 3.9 MMOL/L (3.5-5.1); SODIUM LEVEL 147 MMOL/L (136-145); TOTAL PROTEIN 6.6 G/DL (5.7-8.2)
== END ==
LOC: M SFHCADAM 10:11
PROVIDERS: ATTEND Physician Assistant
DX: R31.29 Other microscopic hematuria (principal); E78.00 Pure hypercholesterolemia, unspecified

== ENCOUNTER → 2024-06-29 | Outpatient (CLI) | payer MEDICARE, OTHER ==
[~2024-06-29] MED LIST changes: +ISOVUE-370 76% 100ML VIAL ONE
== END ==
LOC: M PLAIMG 09:11
PROVIDERS: ATTEND Physician Assistant
DX: R31.29 Other microscopic hematuria (principal); N28.1 Cyst of kidney, acquired
CPT/HCPCS: 74178; Q9967

== ENCOUNTER → 2024-07-08 | Outpatient (REF) | payer MEDICARE, OTHER ==
[~2024-07-08] MED LIST changes: -ISOVUE-370 76% 100ML VIAL ONE
[2024-07-08 13:38] LABS: APPEARANCE, URINE HAZY (CLEAR); BACTERIA, URINE AUTO NEGATIVE (NEGATIVE); BILIRUBIN, URINE AUTO NEGATIVE (NEGATIVE); BLOOD, URINE BLOOD 1+ (NEGATIVE); COLOR, URINE YELLOW (YELLOW); GLUCOSE, URINE (UA) AUTO NEGATIVE (NEGATIVE); KETONE, URINE AUTO NEGATIVE (NEGATIVE); LEUKOCYTE ESTERASE, URINE AUTO NEGATIVE (NEGATIVE); MUCUS, URINE SMALL (NEGATIVE); NITRITE, URINE AUTO NEGATIVE (NEGATIVE); PROTEIN, URINE AUTO NEGATIVE (NEGATIVE); RBC, URINE AUTO 4 /HPF (0-3); SPECIFIC GRAVITY URINE AUTO 1.018 (1.002-1.035); SQUAMOUS EPITHELIAL CELL UR AU 0 /HPF (0-6); UROBILINOGEN, URINE AUTO 0.2 mg/dL (0.0-2.0); WBC, URINE AUTO 0 /HPF (0-3)
== END ==
LOC: M SMT 13:04
PROVIDERS: ATTEND Nurse Practitioner Family
DX: R31.29 Other microscopic hematuria (principal)

== ENCOUNTER → 2024-09-09 | Outpatient (REF) | payer MEDICARE, OTHER ==
[2024-09-09 17:46] LABS: ALBUMIN 3.9 G/DL (3.2-5.2); ALKALINE PHOSPHATASE 98 U/L (35-104); ALT/SGPT 14 U/L (7.0-40); AST/SGOT 12 U/L (<34); BILIRUBIN,TOTAL 0.7 MG/DL (0.3-1.2); BLOOD UREA NITROGEN 19 MG/DL (9-23); CALCIUM LEVEL 9.1 MG/DL (8.3-10.6); CARBON DIOXIDE LEVEL 30 MMOL/L (20-31); CHLORIDE LEVEL 104 MMOL/L (98-107); CHOLESTEROL LEVEL 210 MG/DL (<200); CHOLESTEROL RISK RATIO 3.16 (<5); CREATININE FOR GFR 0.65 MG/DL (0.55-1.30); GLOMERULAR FILTRATION RATE > 90.0 (>45); GLUCOSE, FASTING 85 MG/DL (74-106); HDL CHOLESTEROL 66.3 MG/DL (>40); LDL CHOLESTEROL 123.1 MG/DL (<100); NON-HDL-C 143.7 MG/DL; POTASSIUM SERUM 3.7 MMOL/L (3.5-5.1); SODIUM LEVEL 143 MMOL/L (136-145); TOTAL PROTEIN 6.3 G/DL (5.7-8.2); TRIGLYCERIDES LEVEL 103 MG/DL (<150)
== END ==
LOC: M SFHCCAPE 08:34
PROVIDERS: ATTEND Physician Assistant
DX: E78.00 Pure hypercholesterolemia, unspecified (principal); J45.30 Mild persistent asthma, uncomplicated

== ENCOUNTER → 2025-04-01 | Outpatient (REF) | payer MEDICARE, OTHER | LOC: M SFHCCAPE 10:15 | PROVIDERS: ATTEND Physician Assistant Medical | DX: R35.0 Frequency of micturition (principal) ==